=== PATIENT | female | born 1955 | race Caucasian/White ===

== ENCOUNTER 2020-06-29 10:57 | Outpatient (RCR) | payer OTHER, SELFPAY | END 2020-06-29 23:59 | disposition home or self-care (01) | LOC: NS 10:57 | PROVIDERS: Visit Provider Student in an Organized Health Care Education/Training Program | DX: Z71.3 Dietary counseling and surveillance (principal); R73.01 Impaired fasting glucose | CPT/HCPCS: 97802 ==

== ENCOUNTER 2020-07-21 11:11 | Outpatient (RCR) | payer OTHER, SELFPAY | END 2020-07-30 23:59 | LOC: NS 11:11 | PROVIDERS: Visit Provider Student in an Organized Health Care Education/Training Program | DX: Z71.3 Dietary counseling and surveillance (principal); R73.01 Impaired fasting glucose | CPT/HCPCS: 97803 ==

== ENCOUNTER 2020-08-25 18:00 | Outpatient (RCR) | payer OTHER, SELFPAY ==
[2020-08-12 13:51] VITALS: BMI 27.0
[2020-08-18 19:48] VITALS: BMI 27.0
[2020-08-26 12:13] VITALS: BMI 26.6
== END 2020-08-30 23:59 ==
LOC: NS 18:00
PROVIDERS: Visit Provider Student in an Organized Health Care Education/Training Program
DX: Z71.3 Dietary counseling and surveillance (principal); R73.01 Impaired fasting glucose
CPT/HCPCS: G9873; G9891

== ENCOUNTER 2020-09-22 18:00 | Outpatient (RCR) | payer OTHER, SELFPAY ==
[2020-09-01 19:07] VITALS: BMI 26.7
[2020-09-08 19:35] VITALS: BMI 26.6
[2020-09-15 19:00] VITALS: BMI 26.8
[2020-09-22 19:46] VITALS: BMI 26.4
== END 2020-09-27 23:59 ==
LOC: NS 18:00
PROVIDERS: Visit Provider Student in an Organized Health Care Education/Training Program
DX: Z71.3 Dietary counseling and surveillance (principal); R73.01 Impaired fasting glucose
CPT/HCPCS: G9874; G9891

== ENCOUNTER 2020-10-06 18:00 | Outpatient (RCR) | payer OTHER, SELFPAY ==
[2020-10-06 19:24] VITALS: BMI 26.9
[2020-10-20 19:33] VITALS: BMI 26.7
== END 2020-10-28 23:59 ==
LOC: NS 18:00
PROVIDERS: Visit Provider Student in an Organized Health Care Education/Training Program
DX: Z71.3 Dietary counseling and surveillance (principal); R73.01 Impaired fasting glucose
CPT/HCPCS: G9875; G9891

== ENCOUNTER 2020-11-17 18:00 | Outpatient (RCR) | payer OTHER, SELFPAY ==
[2020-11-04 13:12] VITALS: BMI 27.0
[2020-11-18 19:51] VITALS: BMI 26.4
== END 2020-11-27 23:59 ==
LOC: NS 18:00
PROVIDERS: Visit Provider Student in an Organized Health Care Education/Training Program
DX: Z71.3 Dietary counseling and surveillance (principal); R73.01 Impaired fasting glucose
CPT/HCPCS: G9891

== ENCOUNTER 2020-12-15 18:00 | Outpatient (RCR) | payer OTHER, SELFPAY ==
[2020-12-01 20:20] VITALS: BMI 26.4
[2020-12-15 19:41] VITALS: BMI 26.4
== END 2020-12-28 23:59 ==
LOC: NS 18:00
PROVIDERS: Visit Provider Student in an Organized Health Care Education/Training Program
DX: Z71.3 Dietary counseling and surveillance (principal); R73.01 Impaired fasting glucose
CPT/HCPCS: G9891

== ENCOUNTER 2021-01-26 18:00 | Outpatient (RCR) | payer OTHER, SELFPAY ==
[2020-12-29 19:47] VITALS: BMI 26.3
[2021-01-13 13:23] VITALS: BMI 26.0
[2021-01-26 20:05] VITALS: BMI 26.3
== END 2021-01-27 23:59 ==
LOC: NS 18:00
PROVIDERS: Visit Provider Student in an Organized Health Care Education/Training Program
DX: Z71.3 Dietary counseling and surveillance (principal); R73.01 Impaired fasting glucose
CPT/HCPCS: G9891

== ENCOUNTER 2021-02-16 18:00 | Outpatient (RCR) | payer OTHER, SELFPAY ==
[2021-02-15 18:35] VITALS: BMI 26.1
[2021-02-16 19:56] VITALS: BMI 25.8
== END 2021-02-27 23:59 ==
LOC: NS 18:00
PROVIDERS: Visit Provider Student in an Organized Health Care Education/Training Program
DX: Z71.3 Dietary counseling and surveillance (principal); R73.01 Impaired fasting glucose
CPT/HCPCS: G9891

== ENCOUNTER 2021-03-30 18:00 | Outpatient (RCR) | payer OTHER, SELFPAY ==
[2021-03-03 10:10] VITALS: BMI 26.1
[2021-03-29 12:36] VITALS: BMI 25.9
[2021-03-30 19:42] VITALS: BMI 26.0
== END 2021-03-30 23:59 ==
LOC: NS 18:00
PROVIDERS: Visit Provider Student in an Organized Health Care Education/Training Program
DX: Z71.3 Dietary counseling and surveillance (principal); R73.01 Impaired fasting glucose
CPT/HCPCS: G9891

== ENCOUNTER 2021-04-27 18:00 | Outpatient (RCR) | payer OTHER, SELFPAY ==
[2021-03-31 00:24] VITALS: BMI 26.0
[2021-04-14 10:54] VITALS: BMI 25.7
[2021-04-28 12:44] VITALS: BMI 26.0
== END 2021-04-29 23:59 ==
LOC: NS 18:00
PROVIDERS: Visit Provider Student in an Organized Health Care Education/Training Program
DX: Z71.3 Dietary counseling and surveillance (principal); R73.01 Impaired fasting glucose
CPT/HCPCS: G9876; G9880; G9891

== ENCOUNTER 2021-05-25 18:00 | Outpatient (RCR) | payer OTHER, SELFPAY ==
[2021-04-30 00:19] VITALS: BMI 26.0
[2021-05-24 19:31] VITALS: BMI 25.8
[2021-05-25 19:16] VITALS: BMI 26.0
== END 2021-05-30 23:59 ==
LOC: NS 18:00
PROVIDERS: Visit Provider Student in an Organized Health Care Education/Training Program
DX: Z00.00 Encounter for general adult medical examination without abnormal findings (principal)
CPT/HCPCS: G9891

== ENCOUNTER 2021-06-22 18:00 | Outpatient (RCR) | payer OTHER, SELFPAY ==
[2021-05-31 00:15] VITALS: BMI 26.0
== END 2021-06-29 23:59 ==
LOC: NS 18:00
PROVIDERS: Visit Provider Student in an Organized Health Care Education/Training Program
DX: Z00.00 Encounter for general adult medical examination without abnormal findings (principal)
CPT/HCPCS: G9891

== ENCOUNTER 2021-07-20 18:00 | Outpatient (RCR) | payer OTHER, SELFPAY ==
[2021-06-30 00:20] VITALS: BMI 26.0
[2021-07-06 19:30] VITALS: BMI 26.8
[2021-07-21 08:56] VITALS: BMI 26.8
== END 2021-07-30 23:59 ==
LOC: NS 18:00
PROVIDERS: Visit Provider Student in an Organized Health Care Education/Training Program
DX: Z00.00 Encounter for general adult medical examination without abnormal findings (principal); Z71.3 Dietary counseling and surveillance
CPT/HCPCS: G9877; G9891